=== PATIENT | male | born 1965 | race Caucasian/White ===

== ENCOUNTER 2021-04-10 12:13 | Emergency (ER) | payer OTHER ==
[~2021-04-10] VITALS: Ht 188 cm; Wt 93.1 kg
[2021-04-10 12:24] VITALS: BP 172/105
[2021-04-10] MEDS ORDERED: HYDROcodone/APAP 5/325MG 1 TAB TABLET PO ONE (12:45)
--- NOTE | 2021-04-10 12:45 | EKG ---
[address] [address] Test Date: 2021-04-10 Test Time: 12:23:54 Pat Name: DAVID PANDA Department: Room: Gender: M Patient Educator: JEFF : 1965 Requested By: VERNA NUÑEZ Order Number: [id number] Reading MD: Measurements Intervals Fellows Rate: 72 P: 0 KS: 120 QRS: 21 QRSD: 90 T: 1 QT: 366 QTc: 402 Interpretive Statements SINUS RHYTHM R-S TRANSITION ZONE IN V LEADS DISPLACED TO THE RIGHT OTHERWISE NORMAL ECG RI6.02 No previous ECG available for comparison
--- NOTE | 2021-04-10 12:47 | PHYS DOC ---
General Adult EDM: Chief Complaint: RIB PAIN HPI: HPI: Patient is a 55-year-old female who presents to the ER today for left-sided rib pain for 2 days. Patient describes pain as a pressure and rates it 3 out of 10. There is no radiation of pain. Pain is worse with inspiration/movement/palpation it improves with standing. Patient denies injury, shortness of breath, cough, fevers, heavy lifting. Patient does have a history of hypertension, hyperlipidemia, PR with stent placement. Review of Systems: Review of Systems: 14 body systems of the review of systems have been reviewed. See HPI for pertinent positive and negative responses, otherwise all other systems are negative, nonpertinent or noncontributory Current Medications: Current Meds: Current Medications Medications (Trade) Dose Ordered Sig/Agapito Start Time Stop Time Status Last Admin Dose Admin Acetaminophen/ Hydrocodone Bitart (Lortab 5/325) 1 tab 1X ONCE 04/10/21 12:45 04/10/21 12:46 UNV Allergies: Allergies: Allergies Coded Allergies Type Severity Reaction Last Updated Verified No Known Drug Allergies 04/10/21 No Physical Exam: PE: Constitutional: Well developed, well nourished, no acute distress, non-toxic appearance. [] HENT: Normocephalic, atraumatic Eyes: PERRL, conjunctiva normal, no discharge. [] Neck: Normal range of motion, no stridor Cardiovascular:Heart rate regular rhythm, no murmur [] Lungs & Thorax: Bilateral breath sounds clear to auscultation, pain with palpation of left chest along mid axillary line [] Abdomen: Bowel sounds normal, soft, no tenderness, no masses, no pulsatile masses. [] Skin: Warm, dry, no erythema, no rash. [] Back: Normal range of motion, no tenderness Extremities: No tenderness, no cyanosis, no clubbing, ROM intact, no edema. [] Neurologic: Alert and oriented X 3, normal motor function, normal sensory function, no focal deficits noted. [] Psychologic: Affect normal, judgement normal, mood normal. [] Current Patient Data: Labs: Laboratory Tests Test 04/10/21 12:54 White Blood Count 9.8 x10^3/uL Red Blood Count 4.08 x10^6/uL Hemoglobin 13.8 g/dL Hematocrit 40.6 % Mean Corpuscular Volume 100 fL Mean Corpuscular Hemoglobin 34 pg Mean Corpuscular Hemoglobin Concent 34 g/dL Red Cell Distribution Width 12.7 % Platelet Count 233 x10^3/uL Neutrophils (%) (Auto) 56 % Lymphocytes (%) (Auto) 33 % Monocytes (%) (Auto) 8 % Eosinophils (%) (Auto) 2 % Basophils (%) (Auto) 1 % Neutrophils # (Auto) 5.5 x10^3uL Lymphocytes # (Auto) 3.2 x10^3/uL Monocytes # (Auto) 0.8 x10^3/uL Eosinophils # (Auto) 0.2 x10^3/uL Basophils # (Auto) 0.1 x10^3/uL Sodium Level Pending Potassium Level Pending Chloride Level Pending Carbon Dioxide Level 26 mmol/L Anion Gap Pending Blood Urea Nitrogen 14 mg/dL Creatinine 1.0 mg/dL Estimated GFR (Cockcroft-Gault) 77.3 Glucose Level 120 mg/dL Calcium Level 8.9 mg/dL Troponin I Quantitative < 0.017 ng/mL Current Medications Medications (Trade) Dose Ordered Sig/Agapito Route PRN Reason Start Time Stop Time Status Last Admin Dose Admin Acetaminophen/ Hydrocodone Bitart (Lortab 5/325) 1 tab 1X ONCE PO 04/10/21 12:45 04/10/21 12:46 DC EKG: EKG: [] Radiology/Procedures: Radiology/Procedures: PROCEDURE: CHEST PA & LATERAL XR CHEST 2V History: Reason: l. sided chest pain / Spl. Instructions: / History: Comparison: None. Findings: No consolidation or pleural effusion. Normal heart size. No pneumothorax. Elevation of the left hemidiaphragm. Impression: 1. No acute cardiopulmonary process. Electronically signed by: Genaro Avery DO (04/10/2021 1:00 PM) [id number] DICTATED AND SIGNED BY: GENARO AVERY DO DATE: 04/10/21 1256 CC: VERNA NUÑEZ MEDIATION COMMISSIONER ~MTH0 0 Heart Score: C/O Chest Pain: Yes HEART Score for Chest Pain: HEART Score for Chest Pain Response (Comments) Value History Slighlty/Non-Suspicious 0 ECG Normal 0 Age >45 - < 65 1 Risk Factors >3 Risk Factors or Hx CAD 2 Troponin < Normal Limit 0 Total 3 Risk Factors: Risk Factors: DM, Current or recent (<one month) smoker, HTN, HLP, family history of CAD, obesity. Risk Scores: Score 0 - 3: 2.5% MACE over next 6 weeks - Discharge Home Score 4 - 6: 20.3% MACE over next 6 weeks - Admit for Clinical Observation Score 7 - 10: 72.7% MACE over next 6 weeks - Early Invasive Strategies Course & Med Decision Making: Course & Med Decision Making Pertinent Labs and Imaging studies reviewed. (See chart for details) Patient is a 55-year-old male being seen in the ER today for left-sided rib pain that started 2 days ago. Patient has a cardiac history which includes an PR with stent placement. Patient denies any injury or heavy lifting. Although the pain is worse with movement/inspiration/palpation to the patient's this. Work- up included EKG, blood work, chest x-ray. Work-up was unremarkable in the ER. Patient unable to take hydrocodone that was ordered in the ER because he is driving. Patient advised to take anti-inflammatory medications at home and will be discharged with muscle relaxer. I discussed with patient all findings and diagnostic testing as well as the need to follow-up with PCP for further evaluation and treatment or return to the ER if any new or worsening symptoms. Strict return precautions were also discussed at length. Patient voiced understanding and agreement with the plan. Patient is hemodynamically stable at the time of disposition. Julio Disclaimer: Julio Disclaimer: This electronic medical record was generated, in whole or in part, using a voice recognition dictation system. Departure Departure: Impression: Primary Impression: Chest wall pain Disposition: HOME / SELF CARE / HOMELESS Condition: GOOD Patient Instructions: Chest Wall Pain Additional Instructions: Thank you for choosing [facility] and allowing me to participate in your care. As we have discussed, your findings indicate no cardiac cause for your left rib/chest pain. As we have discussed, the treatment includes anti- inflammatory medications like ibuprofen/naproxen. You are being sent home with a stronger pain medication but contains hydrocodone and Tylenol. Please take this as directed. This medication may cause sedation so please do not take when he needs to be alert and do not take with alcohol.. Please follow up with your primary care provider tomorrow regarding your ER visit. If your symptoms worsen or you develop increased pain, shortness of breath, chest pain, fevers, cough, please return. EMERGENCY DEPARTMENT GENERAL DISCHARGE INSTRUCTIONS Thank you for coming to [facility] (ED) today and trusting us with you care. We trust that you had a positivie experience in our Emergency Department. If you wish to speak to the department management, you may call the director at [phone]. YOUR FOLLOW UP INSTRUCTIONS ARE FOLLOWS: 1. Do you have a private Doctor? If you do not have a private doctor, please ask for a resource list of physicians or clinics that may be able to assist you with follow up care. 2. The Emergency Physician has interpreted your x-rays. The X-Ray specialist will also review them. If there is a change in the findings, you will be notified in 48 hours when at all possible. 3. A lab test or culture has been done, your results will be reviewed and you will be notified if you need a change in treatment. ADDITIONAL INSTRUCTIONS AND INFORMATION: 1. Your care today has been supervised by a physician who is specially trained in emergency care. Many problems require more than one evaluation for a complete diagnosis and treatment. We recommend that you schedule your follow up appointment as recommended to ensure complete treatment of you illness or injury. If you are unable to obtain follow up care and continue to have a problem, or if your condition worsens, we recommend that you return to the ED. 2. We are not able to safely determine your condition over the phone nor are we able to give sound medical advice over the phone. For these safety reasons, if you call for medical advice we will ask you to come to the ED for further evaluation. 3. If you have any questions regarding these discharge instructions please call the ED at [phone]. SAFETY INFORMATION: In the interest of safety, wellness, and injury prevention; we encourage you to wear your sealbelt, if you smoke; quite smoking, and we encourage family to use a protective helmet for bicycling and other sporting events that present an increased risk for head injury. IF YOUR SYMPTOMS WORSEN OR NEW SYMPTOMS DEVELOP, OR YOU HAVE CONCERNS ABOUT YOUR CONDITION; OR IF YOUR CONDITION WORSENS WHILE YOU ARE WAITING FOR YOUR FOLLOW UP APPOINTMENT; EITHER CONTACT YOUR PRIMARY CARE DOCTOR, THE PHYSICIAN WHOSE NAME AND NUMBER YOU WERE GIVEN, OR RETURN TO THE ED IMMEDIATELY. Scripts Hydrocodone Bit/Acetaminophen (HYDROCODONE-APAP 5-325 ) 1 Each Tablet 1 TAB PO PRN Q6HRS PRN for PAIN for 2 Days, #8 TAB 0 Refills Prov: VERNA NUÑEZ APRN 04/10/21 VERNA NUÑEZ APRN Apr 10, 2021 12:47
--- NOTE | 2021-04-10 13:02 | RAD ---
XR CHEST 2V History: Reason: l. sided chest pain / Spl. Instructions: / History: Comparison: None. Findings: No consolidation or pleural effusion. Normal heart size. No pneumothorax. Elevation of the left hemid iaphragm. Impression: 1. No acute cardiopulmonary process. Electronically signed by: Genaro Uriarte DO (04/10/2021 1:00 PM) [id number]
[2021-04-10 13:08] LABS: BASO # 0.1 x10^3/uL (0.0-0.2); BASO % 1 % (0-3); EOS # 0.2 x10^3/uL (0.0-0.7); EOS % 2 % (0-3); HEMATOCRIT 40.6 % (39.0-53.0); HEMOGLOBIN 13.8 g/dL (13.0-17.5); LYMPH # 3.2 x10^3/uL (1.0-4.8); LYMPH % 33 % (24-48); MEAN CORPUSCULAR HEMOGLOBIN 34 pg (25-35); MEAN CORPUSCULAR HGB CONC 34 g/dL (31-37); MEAN CORPUSCULAR VOLUME 100 fL (79-100); MONO # 0.8 x10^3/uL (0.0-1.1); MONO % 8 % (0-9); NEUT # 5.5 x10^3uL (1.8-7.7); NEUT % 56 % (31-73); PLATELET COUNT 233 x10^3/uL (140-400); RED BLOOD COUNT 4.08 x10^6/uL (4.30-5.70); RED CELL DISTRIBUTION WIDTH 12.7 % (11.5-14.5); WHITE BLOOD COUNT 9.8 x10^3/uL (4.0-11.0)
[2021-04-10 13:20] LABS: CALCIUM 8.9 mg/dL (8.5-10.1); GFR 77.3
[2021-04-10] MEDS ORDERED: HYDR-2155 PO (14:10)
[2021-04-10 14:51] LABS: POTASSIUM 4.4 mmol/L (3.5-5.1)
== END 2021-04-10 15:14 | disposition home or self-care (01) ==
LOC: ER 12:13
DX: R07.89 Other chest pain (principal)
CPT/HCPCS: 36415; 71046; 80048; 84484; 85025; 93005; 99285-25